=== PATIENT | female | born 1990 | race Caucasian/White ===

== ENCOUNTER 2020-04-04 02:41 | Emergency (ER) | payer MEDICAID ==
[~2020-04-04] VITALS: Ht 172.7 cm; Wt 75.0 kg
[2020-04-04] MEDS ORDERED: MORPHINE SULFATE 4 MG/ML, 1ML IVPush PRN (03:00)
[2020-04-04] MEDS ORDERED: SODIUM CHLORIDE FLUSH 10ML SYR IVF ONE (03:00)
[2020-04-04] MEDS ORDERED: ONDANSETRON 2MG/ML, 2ML IVPush ONE (03:00)
--- NOTE | 2020-04-04 03:16 | NUR ---
WORKING TO OBTAIN IV ACCESS.
[2020-04-04 03:26] LABS: MICROSCOPIC INDICATED
[2020-04-04] MEDS ORDERED: HYDROcodone/APAP 5/325 TABLET PO ONE (03:30)
[2020-04-04] MEDS ORDERED: KETOROLAC 30 MG/1 ML IM ONE (03:30)
[2020-04-04] MEDS ORDERED: HYDROcodone/APAP 5/325 TABLET ONE (03:32)
[2020-04-04] MEDS ORDERED: KETOROLAC 60 MG/2 ML ONE (03:32)
--- NOTE | 2020-04-04 03:51 | NUR ---
PT REFUSED EJ PERIPHERAL LINE, PT REFUSED ULTRA SOUNDED GUIDED IV. PT STATES "I DON'T WANT TO BE POKED AGAIN." PT EDUCATED ABOUT THE NEED FOR LABS. ERP MADE AWARE ABOUT REFUSAL FOR IV, MEDICATON ORDERS CHANGED. PT MEDICATED AND TOLD SHE WOULD BE GIVEN TIME TO HELP HER RELAX MORE AND LET THE PAIN MEDS START TO TAKE EFFECT, AND THEN WE WOULD ASSESS LAB DRAW AGAIN, POTENTIALLY IN THE LOWER EXTREMITIES.
[2020-04-04 04:01] LABS: HCG UR SG 1.028 (1.003-1.030)
--- NOTE | 2020-04-04 04:01 | NUR ---
PT REFUSING LABS. PT GIVEN EXTENSIVE EDUCATION. ERP TO BEDSIDE TO DISCUSS POC WITH PT. PT REFUSING ALL FURTHER INTERVENTIONS. STATES RELIEF FROM PAIN AND THAT SHE WILL RETURN IF SYMPOTOMS GET WORSE.
[2020-04-04 04:04] VITALS: BP 138/84
--- NOTE | 2020-04-04 04:13 | NUR ---
PT RESTING IN GURNEY, NO SIGNS OF ACUTE DISTRESS, RESPIRATIONS EVEN AND UNLABORED. AWAITING D/C PAPERWORK.
== END 2020-04-04 04:29 | disposition home or self-care (01) ==
LOC: ED 03:43
DX: R10.30 Lower abdominal pain, unspecified (principal); R00.0 Tachycardia, unspecified; Z88.0 Allergy status to penicillin
CPT/HCPCS: 81001; 81025; 87086; 96372; 99283; J1885

== ENCOUNTER 2020-06-23 22:05 | Emergency (ER) | payer MEDICAID ==
[~2020-06-23] VITALS: Ht 170.2 cm; Wt 92.4 kg
[2020-06-23 22:08] VITALS: BP 119/73
--- NOTE | 2020-06-23 22:21 | NUR ---
ALL MONITORING EQUIPMENT IN PLACE. VITALS STABLE. NO DISTRESS NOTED. PT PROVIDED WITH WARM BLANKETS. AWAITING PROVIDER TO SEE PT AT THIS TIME. WILL CONTINUE TO MONITOR.
--- NOTE | 2020-06-23 22:41 | NUR ---
DR. TAVERAS AT BEDSIDE.
--- NOTE | 2020-06-23 22:51 | NUR ---
XRAY AT BEDSIDE.
--- NOTE | 2020-06-24 00:09 | NUR ---
Patient/Caregiver given discharge instructions and they have confirmed that they understand the instructions. Patient ambulatory with steady gait.
== END 2020-06-24 00:11 | disposition home or self-care (01) ==
LOC: ED 22:50
DX: R07.89 Other chest pain (principal); R05 Cough; R51.9 Headache, unspecified; M79.10 Myalgia, unspecified site; F17.200 Nicotine dependence, unspecified, uncomplicated
CPT/HCPCS: 71045; 87635; 93005; 99283; 99285

== ENCOUNTER 2020-09-03 14:35 | Emergency (ER) | payer MEDICAID ==
[~2020-09-03] VITALS: Ht 170.2 cm; Wt 91.9 kg
--- NOTE | 2020-09-03 14:57 | NUR ---
BREAK RN: PT TO ROOM FROM [facility], GAIT STEADY. CONTACT WITH PT 29 YR OLD FEMALE HERE WITH CO "ABOUT 1.5 YRS AGO, MY BOYFRIEND AND CAME IN BECAUSE WE HAD A WEIRD CONTACT WITH THIS GIRL. WE WERE PUT ON ABX, BUT WE HAD INTERCOURSE IN THE MIDDLE OF IT. IT DONT THINK IT ENTIRELY WENT AWAY. I'M IN RECOVERY AND I JUST WANT TO BE CHECKED AND GET THINGS TAKEN CARE OF. I FEEL LIKE I'M ON MY PERIOD, BUT ITS A CLEAR/PINKISH DISHARGE." HAS BEEN FOR 3-4 WEEKS.
--- NOTE | 2020-09-03 15:13 | NUR ---
REPORT TO DARIA MCCLOUD
[2020-09-03] MEDS ORDERED: AZITHROMYCIN 500 MG TABLET ONE (15:49)
[2020-09-03] MEDS ORDERED: CEFTRIAXONE 250 MG ONE (15:49)
[2020-09-03] MEDS ORDERED: LIDOCAINE-MPF 1%, 2ML ONE (15:49)
[2020-09-03] MEDS ORDERED: CEFTRIAXONE 250 MG IM ONE (16:00)
[2020-09-03] MEDS ORDERED: AZITHROMYCIN 500 MG TABLET PO ONE (16:00)
--- NOTE | 2020-09-03 16:07 | NUR ---
This RN at bedside to witness pelvic exam.
[2020-09-03 16:40] LABS: HCG UR SG 1.024 (1.003-1.030)
[2020-09-03 16:42] LABS: CLUE CELLS PRESENT (NONE SEEN); WET PREP WBCS NONE SEEN (FEW)
[2020-09-03 16:42] LABS: MICROSCOPIC INDICATED
[2020-09-03 17:11] VITALS: BP 131/83
== END 2020-09-03 17:23 | disposition home or self-care (01) ==
LOC: ED 15:33
DX: N76.0 Acute vaginitis (principal)
CPT/HCPCS: 81001; 81025; 87086; 87210; 87491; 87591; 87808; 96372; 99284; J0696; 99283

== ENCOUNTER 2020-09-14 18:22 | Emergency (ER) | payer MEDICAID ==
[~2020-09-14] VITALS: Ht 172.7 cm; Wt 85.0 kg
--- NOTE | 2020-09-14 18:55 | NUR ---
REPORT TO ROGERS PRASAD FOR TRANSFER OF PATIENT CARE.
[2020-09-14] MEDS ORDERED: ALBUTEROL/IPRATROPIUM 2.5MG/0.5MG, 3 ML NPPB ONE (19:00)
--- NOTE | 2020-09-14 19:00 | NUR ---
SOB W/ WHEEZING X 2 MONTHS. WORSE WITH EXERTION NO DOCUMENTED ASTHMA HX ALTHOUGH "I HAVE ALWAYS BEEN SOB , AND WORSE WITH HEAVY EXERTION. LATELY JUST WALKING TOO MUCH AND I'M PUFFING." 3 WORD SENTENCES WITH WHEEZE AUDIBLE FROM DOOR, RR:20-30
[2020-09-14] MEDS ORDERED: ALBUTEROL/IPRATROPIUM 2.5MG/0.5MG, 3 ML ONE (19:07)
--- NOTE | 2020-09-14 19:39 | NUR ---
NEBULIZER COMPLETE. WOB FROM 03/06 TO 11/04. WHEEZING IMPROVED COMPARIBLY
[2020-09-14 20:25] VITALS: BP 138/70
== END 2020-09-14 20:28 | disposition home or self-care (01) ==
LOC: ED 20:15
DX: J98.01 Acute bronchospasm (principal); R06.02 Shortness of breath; R06.00 Dyspnea, unspecified; R94.31 Abnormal electrocardiogram [ECG] [EKG]
CPT/HCPCS: 93005; 94640; 99283; J7512; 99406

== ENCOUNTER 2020-09-19 11:16 | Emergency (ER) | payer MEDICAID ==
[~2020-09-19] VITALS: Ht 172.7 cm; Wt 93.1 kg
--- NOTE | 2020-09-19 11:51 | NUR ---
Assumed care of patient. C/O VB and cramping x 5 days. Reports intermittent VB and cramping x 1.5 months. NAD. Will continue to monitor.
[2020-09-19 12:37] LABS: BASOPHILS % (AUTO) 1 % (0-1); EOSINOPHILS % (AUTO) 8 % (1-7); LYMPHOCYTES % (AUTO) 25 % (22-44); MD NO; MEAN CORPUSCULAR HEMOGLOBIN 30.1 pg (27.0-34.8); MEAN CORPUSCULAR HGB CONC 33.8 g/dL (32.4-35.8); MEAN PLATELET VOLUME 9.7 fL (7.4-10.4); MONOCYTES % (AUTO) 7 % (2-9); NEUTROPHILS % (AUTO) 59 % (42-75); PLATELET COUNT 270 x10^3/uL (130-400); RED BLOOD COUNT 3.89 x10^6/uL (3.82-5.3); RED CELL DISTRIBUTION WIDTH 14.4 % (9.6-15.2)
[2020-09-19 12:47] LABS: ALBUMIN 3.4 g/dL (3.4-5.0); ANION GAP 9 mmol/L (5-15); CHLORIDE 113 mmol/L (98-107)
--- NOTE | 2020-09-19 13:02 | NUR ---
Resting in [facility]. No needs.
--- NOTE | 2020-09-19 14:35 | NUR ---
Back from [place]. No needs.
[2020-09-19 15:09] VITALS: BP 125/81
--- NOTE | 2020-09-19 15:17 | NUR ---
TASK RN: Pt agrees with and understands discharge plan and instructions.
--- NOTE | 2020-09-19 15:24 | NUR ---
Patient/Caregiver given discharge instructions and they have confirmed that they understand the instructions. Patient ambulatory with steady gait.
== END 2020-09-19 15:27 | disposition home or self-care (01) ==
LOC: ED 14:23
DX: N93.8 Other specified abnormal uterine and vaginal bleeding (principal); N83.209 Unspecified ovarian cyst, unspecified side
CPT/HCPCS: 36415; 76830; 80048; 82040; 84702; 85025; 86901; 99284

== ENCOUNTER 2020-09-27 02:02 | Emergency (ER) | payer MEDICAID ==
[~2020-09-27] VITALS: Ht 172.7 cm; Wt 91.3 kg
[2020-09-27] MEDS ORDERED: IPRATROPIUM 0.5 MG/2.5 ML INHA ONE ×2 (02:38→06:12)
[2020-09-27] MEDS ORDERED: ALBUTEROL 0.5%, 20ML ONE (02:38)
[2020-09-27] MEDS: IPRATROPIUM 0.5 MG/2.5 ML INHA NPPB SCH ×2 (02:49→03:40)
--- NOTE | 2020-09-27 02:50 | NUR ---
CONTINUOUS NEB TX STARTED PER ERP ORDER. PT TOLERATING WELL. NO ADDITIONAL NEEDS AT THIS TIME
[2020-09-27] MEDS ORDERED: SODIUM CHLORIDE FLUSH 10ML SYR IVF ONE (03:00)
[2020-09-27] MEDS ORDERED: SODIUM CHLORIDE 0.9% 1,000ML IVBOLUS ONE (03:00)
[2020-09-27] MEDS ORDERED: methylPREDNISolone SOD SUCC 125 MG/2 ML IV ONE (03:00)
[2020-09-27] MEDS ORDERED: ALBUTEROL 0.5%, 20ML NPPB SCH (03:00)
[2020-09-27] MEDS ORDERED: MAGNESIUM SULFATE PMX 2GM/50ML 50 ML IVPB ONE (03:00)
--- NOTE | 2020-09-27 03:05 | NUR ---
PT SITTING UPRIGHT ON GURNEY, "I FEEL BETTER AFTER THIS BREATHING TX BEING STARTED, I FEEL NOT CONSTRICTED". PT DENIES ANY ADDITIONAL NEEDS AT THIS TIME. CALL LIGHT AND BELONGINGS WITHIN REACH. STAFF AT BEDSIDE FOR PIV INSERTION
[2020-09-27] MEDS ORDERED: methylPREDNISolone SOD SUCC 125 MG/2 ML ONE (03:30)
[2020-09-27] MEDS ORDERED: MAGNESIUM SULFATE PMX 2GM/50ML 50 ML ONE (03:30)
[2020-09-27 04:39] VITALS: BP 137/71
--- NOTE | 2020-09-27 05:08 | NUR ---
Patient given discharge instructions and they have confirmed that they understand the instructions. Patient ambulatory with steady gait.
== END 2020-09-27 05:10 | disposition home or self-care (01) ==
LOC: ED 02:36
DX: J45.41 Moderate persistent asthma with (acute) exacerbation (principal); R09.02 Hypoxemia; R06.00 Dyspnea, unspecified; R00.0 Tachycardia, unspecified; R94.31 Abnormal electrocardiogram [ECG] [EKG]; Z88.0 Allergy status to penicillin; Z88.1 Allergy status to other antibiotic agents; Z87.891 Personal history of nicotine dependence
CPT/HCPCS: 71045; 93005; 94640; 96361; 96365; 96366; 96375; 99284; J2930; J3475; J7030; J7644; 99285

== ENCOUNTER 2020-12-01 16:20 | Emergency (ER) | payer MEDICAID ==
[~2020-12-01] VITALS: Ht 170.2 cm; Wt 86.1 kg
[2020-12-01] MEDS ORDERED: ALBUTEROL/IPRATROPIUM 2.5MG/0.5MG, 3 ML NPPB SCH (16:30)
[2020-12-01] MEDS ORDERED: PLEASE ENTER HEIGHT AND WEIGHT MC SCH (16:30)
[2020-12-01] MEDS ORDERED: ALBUTEROL/IPRATROPIUM 2.5MG/0.5MG, 3 ML ONE (16:34)
--- NOTE | 2020-12-01 17:00 | NUR ---
[place] IN PROGRESS.
--- NOTE | 2020-12-01 17:34 | NUR ---
PT STS FEELS BETTER AFTER DUONEB. KAMINSKI IN ROOM FOR EVAL.
[2020-12-01 18:01] VITALS: BP 126/66
== END 2020-12-01 18:03 | disposition home or self-care (01) ==
LOC: ED 16:35
DX: J45.901 Unspecified asthma with (acute) exacerbation (principal); F17.200 Nicotine dependence, unspecified, uncomplicated
CPT/HCPCS: 99283

== ENCOUNTER 2021-01-08 15:07 | Emergency (ER) | payer MEDICAID ==
[~2021-01-08] VITALS: Ht 172.7 cm; Wt 80.0 kg
[2021-01-08 17:02] VITALS: BP 132/72
[2021-01-09] MEDS ORDERED: ALBU18HF INH (07:00)
== END 2021-01-08 17:06 | disposition home or self-care (01) ==
LOC: ED 17:00
DX: J45.31 Mild persistent asthma with (acute) exacerbation (principal)
CPT/HCPCS: 93005; 99283; J7512

== ENCOUNTER 2021-01-09 04:10 | Emergency (ER) | payer MEDICAID ==
[~2021-01-09] VITALS: Ht 172.7 cm; Wt 87.8 kg
[2021-01-09] MEDS ORDERED: ALBUTEROL/IPRATROPIUM 2.5MG/0.5MG, 3 ML ONE ×2 (04:33→05:44)
[2021-01-09] MEDS: ALBUTEROL/IPRATROPIUM 2.5MG/0.5MG, 3 ML NPPB SCH ×2 (05:15→05:46)
--- NOTE | 2021-01-09 05:47 | NUR ---
WHEEZING IMPROVED AFTER 1ST NEB, SOME EXPRITORY WHEEZES STILL REMAIN AT BASES. 2ND NEB GIVEN PER SEP.
--- NOTE | 2021-01-09 06:26 | NUR ---
breathing has improved after second neb tx
--- NOTE | 2021-01-09 06:52 | NUR ---
Report to Razia MCCLOUD
--- NOTE | 2021-01-09 06:53 | NUR ---
PT REPORT FROM ROGERS BHARDWAJ. PT TO BE DC'D.
--- NOTE | 2021-01-09 06:54 | NUR ---
INHALER RECEIVED FROM PHARMACY; TO BE SENT HOME W/ PT.
--- NOTE | 2021-01-09 06:55 | NUR ---
PT DOZING, EASILY AWAKENED. PT STATES BREATHING IS "A LOT BETTER". INHALER GIVEN TO PT; USE DISCUSSED W/ PT; UNDERSTANDING VERBALIZED.
[2021-01-09 07:00] VITALS: BP 120/71
[2021-01-09] MEDS ORDERED: ALBU18HF INH (07:00)
[2021-01-09] MEDS ORDERED: ALBUTEROL HFA 90 MCG/SPRAY INH PRN (07:00)
== END 2021-01-09 07:08 | disposition home or self-care (01) ==
LOC: ED 04:35
DX: J45.41 Moderate persistent asthma with (acute) exacerbation (principal); R00.0 Tachycardia, unspecified; Z87.891 Personal history of nicotine dependence
CPT/HCPCS: 94640; 99284; J7512

== ENCOUNTER 2021-03-15 21:42 | Emergency (ER) | payer MEDICAID ==
[~2021-03-15] VITALS: Ht 170.2 cm; Wt 82.3 kg
[~2021-03-15 21:42] MED LIST: ALBU18HF INH
[2021-03-15 22:00] VITALS: BP 129/90
--- NOTE | 2021-03-15 23:00 | NUR ---
CALLED FOR LABS NA X 1
--- NOTE | 2021-03-15 23:42 | NUR ---
CALLED FOR ROOM. NA X 2
--- NOTE | 2021-03-16 00:07 | NUR ---
NA X 3
== END 2021-03-16 00:09 | disposition left against medical advice (07) ==
LOC: ED 22:00
DX: R10.9 Unspecified abdominal pain (principal); R11.0 Nausea
CPT/HCPCS: 99281

== ENCOUNTER 2021-04-17 02:18 | Emergency (ER) | payer MEDICAID ==
[~2021-04-17] VITALS: Ht 170.2 cm; Wt 81.0 kg
--- NOTE | 2021-04-17 03:47 | NUR ---
Assessment made. ERP at bedside.
--- NOTE | 2021-04-17 03:50 | NUR ---
pt to room from lobby
[2021-04-17] MEDS ORDERED: ALBUTEROL/IPRATROPIUM 2.5MG/0.5MG, 3 ML NPPB ONE (04:00)
[2021-04-17] MEDS ORDERED: ALBUTEROL/IPRATROPIUM 2.5MG/0.5MG, 3 ML ONE (04:00)
[2021-04-17 04:41] VITALS: BP 123/79
--- NOTE | 2021-04-17 04:42 | NUR ---
Patient/Caregiver given discharge instructions and they have confirmed that they understand the instructions. Patient ambulatory with steady gait. NAD, all questions answered appropriately, denies additional needs at this time. No personal belongings left in room after discharge. pt reports breathing a lot better
== END 2021-04-17 05:16 | disposition home or self-care (01) ==
LOC: ED 04:00
DX: J45.41 Moderate persistent asthma with (acute) exacerbation (principal); R06.02 Shortness of breath; R00.0 Tachycardia, unspecified; Z87.891 Personal history of nicotine dependence
CPT/HCPCS: 93005; 94640